=== PATIENT | male | born 1970 | race African-American/Black ===

== ENCOUNTER 2018-02-25 07:15 | Emergency (ER) | payer SELFPAY ==
[~2018-02-25] VITALS: Ht 180.3 cm; Wt 100.0 kg
[2018-02-25 08:06] VITALS: Ht 180.3 cm; Wt 100.0 kg
[2018-02-25] MEDS ORDERED: ILOTYCIN1 GM RIGHT EYE (10:08)
[2018-02-25 10:13] VITALS: BP 141/89
== END 2018-02-25 10:14 | disposition home or self-care (01) ==
LOC: D.ER 07:15
DX: S05.01XA Injury of conjunctiva and corneal abrasion without foreign body, right eye, initial encounter (principal); W22.8XXA Striking against or struck by other objects, initial encounter; Y93.89 Activity, other specified; Y92.89 Other specified places as the place of occurrence of the external cause